=== PATIENT | female | born 1995 | race Caucasian/White ===

== ENCOUNTER 2018-07-07 15:17 | Emergency (ER) | payer SELFPAY ==
[~2018-07-07] VITALS: Wt 63.1 kg
[~2018-07-07 15:17] MED LIST: IBUP-1542 PO; TRAM50TA2 PO
[2018-07-07 15:27] VITALS: BP 138/81; PULSE 87; RESP 19
[2018-07-07] MEDS ORDERED: CYCL10TA7 PO (16:53)
[2018-07-07] MEDS ORDERED: IBUP-1542 PO (16:53)
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
== END 2018-07-07 17:05 | disposition home or self-care (01) ==
LOC: FTE 15:17
DX: S16.1XXA Strain of muscle, fascia and tendon at neck level, initial encounter (principal); S29.002A Unspecified injury of muscle and tendon of back wall of thorax, initial encounter; V49.50XA Passenger injured in collision with unspecified motor vehicles in traffic accident, initial encounter; Y92.9 Unspecified place or not applicable
CPT/HCPCS: 99283

== ENCOUNTER 2018-07-12 21:44 | Emergency (ER) | payer SELFPAY ==
[~2018-07-12] VITALS: Ht 152.4 cm; Wt 63.4 kg
[~2018-07-12 21:44] MED LIST changes: +CYCL10TA7 PO
[2018-07-12 21:49] VITALS: BP 136/93; PULSE 92; RESP 18; Ht 152.4 cm; Wt 63.4 kg
== END 2018-07-13 00:05 | disposition left against medical advice (07) ==
LOC: FTE 21:44
DX: Z53.21 Procedure and treatment not carried out due to patient leaving prior to being seen by health care provider (principal)